=== PATIENT | male | born 1970 | race African-American/Black ===

== ENCOUNTER 2018-12-25 12:35 | Emergency (ER) | payer SELFPAY ==
[2018-12-25 12:52] VITALS: BP 156/96
--- NOTE | 2018-12-25 20:46 | EKG REPORT ---
SEVERITY:- ABNORMAL ECG - SINUS RHYTHM PROBABLE LEFT VENTRICULAR HYPERTROPHY : Confirmed by: Nicholas Alvares 25-Dec-2018 20:45:11
== END 2018-12-25 13:28 | disposition left against medical advice (07) ==
LOC: ER 12:35
DX: Z53.21 Procedure and treatment not carried out due to patient leaving prior to being seen by health care provider (principal)
CPT/HCPCS: 93005; 93010

== ENCOUNTER 2020-09-04 09:20 | Emergency (ER) | payer SELFPAY ==
[2020-09-04] MEDS ORDERED: SILVER SULFADIAZINE 1% CREAM 25 GM TP ONE (10:15)
--- NOTE | 2020-09-04 10:15 | ER Document Report ---
ED Skin Rash/Insect Bite/Abscs - General Chief Complaint: Skin Problem Stated Complaint: SKIN SORES/FACIAL SWELLING Time Seen by Provider: 09/04/20 10:08 Primary Care Provider: DARCY DAMICO [NO LOCAL MD] - Follow up as needed TRAVEL OUTSIDE OF THE [place] IN LAST 30 DAYS: No - HPI Notes: 49-year-old male presents to ED for evaluation of possible allergic reaction to hair dye. Patient states he dyed his hair 2 days ago and left the hair down too long. Patient reports he started with lesions along the hairline that he has been scratching it. Reports they now have a serous drainage from them. Reports they are painful in nature. Notes that he believes he is having allergic reaction. Denies any difficulties breathing or handling his secretions. Denies any fevers or chills. Patient reports that they are worse right along his scalp line however to extend backward into the rest of his scalp. Patient has not taken any medications for management prior to arrival. Patient and significant other report they have used cornstarch to the area however it appears to make it worse when it is washed off. - Related Data Allergies/Adverse Reactions: No Known Allergies Allergy (Unverified 12/25/18 12:39) Past Medical History - Social History Smoking Status: Current Every Day Smoker Chew tobacco use (# tins/day): No Frequency of alcohol use: None Drug Abuse: None Family History: None Review of Systems - Review of Systems Notes: Constitutional: Negative for fever. HENT: Negative for sore throat. Eyes: Negative for visual changes. Cardiovascular: Negative for chest pain. Respiratory: Negative for shortness of breath. Gastrointestinal: Negative for abdominal pain, vomiting or diarrhea. Genitourinary: Negative for dysuria. Musculoskeletal: Negative for back pain. Skin: + for rash. Neurological: Negative for headaches, weakness or numbness. 10 point ROS negative except as marked above and in HPI. Physical Exam - Vital signs Vitals: Temp Pulse Resp BP Pulse Ox 98.1 F 87 20 125/81 100 09/04/20 09:27 09/04/20 09:27 09/04/20 09:27 09/04/20 09:27 09/04/20 09:27 General: No acute distress. Alert and oriented x3. Sitting comfortably in a stretcher. Skin: Intact without any jaundice, pallor, or erythema. Warm and dry. Erythematous, vesicular appearing rash globally present to area along scalp. Serous drainage. Areas of erythematous wheals interspersed. HEENT: Normocephalic, atraumatic. Pupils are equal round reactive to light and accommodation. Extraocular movements are intact. TMs without erythema or bulging. Canals are clear. Nares patent without any discharge. Teeth in good condition. Pharynx without erythema, edema, or exudates. No tonsillar enlargement. Uvula is midline. Airway is patent. Neck: Supple with no lymphadenopathy. Full range of motion. Heart: Regular rate and rhythm. S1,S2. No murmurs, rubs, or gallops. Lungs: Clear to ausculation bilaterally. No wheezes, rhonchi, rales. Equal chest expansion. No retractions. Neuro: GCS 15. Moving all extremities without discomfort. Psych: Mood and affect appropriate. Course - Re-evaluation Re-evalutation: 09/04/20 23:27 49-year-old male presents to ED for evaluation of allergic reaction to hair dye. Patient is found to have erythematous wheals with vesicular appearance and serous drainage. Presentation is most likely allergic in nature however also appears to have a burn-like quality to it. I believe that this was more irritated by the cornstarch application. I did discuss with the patient and his significant other that they should discontinue the cornstarch, wash with gentle soaps, and use Silvadene. Patient will also be started on a course of antibiotics as well as pain management. I did advise that they should follow-up closely with her primary care physician return to the ED if they develop any new or worsening symptoms. They understand their indications to return to the ED. Understand the course of management and are agreeable with this plan of care. - Vital Signs Vital signs: Temp Pulse Resp BP Pulse Ox 98.2 F 90 18 127/88 H 100 09/04/20 10:39 09/04/20 10:39 09/04/20 10:39 09/04/20 10:39 09/04/20 10:39 - Laboratory Results Critical Laboratory Results Reviewed: No Critical Results - Radiology Results Critical Radiology Results Reviewed: No Critical Results Discharge - Discharge Clinical Impression: Thermal burn alopecia Allergic reaction caused by a drug Qualifiers: Encounter type: initial encounter Qualified Code(s): T78.40XA - Allergy, unspecified, initial encounter Condition: Stable Disposition: HOME, SELF-CARE Instructions: Acute Allergic Reaction ([facility]) Prescriptions: Ketorolac Tromethamine [Toradol 10 mg Tablet] 10 mg PO Q8HP PRN #15 tablet PRN Reason: Cephalexin Monohydrate [Keflex 500 mg Capsule] 500 mg PO Q6H 5 Days #40 capsule Referrals: LOCALMD,NO [NO LOCAL MD] - Follow up as needed
[2020-09-04 10:40] VITALS: BP 127/88
== END 2020-09-04 10:49 | disposition home or self-care (01) ==
LOC: ER 09:20
DX: T30.0 Burn of unspecified body region, unspecified degree (principal); X08.8XXA Exposure to other specified smoke, fire and flames, initial encounter; L65.9 Nonscarring hair loss, unspecified; L50.9 Urticaria, unspecified; T50.905A Adverse effect of unspecified drugs, medicaments and biological substances, initial encounter; F17.200 Nicotine dependence, unspecified, uncomplicated
CPT/HCPCS: 99283